=== PATIENT | male | born 1965 | race Caucasian/White ===

== ENCOUNTER → 2018-02-17 | Outpatient (CLI) | payer BC ==
[2018-02-17 13:21] LABS: BASO % 0.3 %; BASO ABS # 0.01 K/uL (0-0.2); EOS % 1.1 %; EOS ABS # 0.04 K/uL (0-0.5); HEMATOCRIT 44.7 % (42-52); HEMOGLOBIN 15.1 g/dL (14.0-18.0); IG# 0.01 K/uL (0.00-0.02); LYMPH ABS # 1.43 K/uL (1.2-3.4); MEAN CELL VOLUME 93.3 fL (80-100); MEAN CORPUSCULAR HEMOGLOBIN 31.5 pg (25-34); MEAN CORPUSCULAR HGB CONC 33.8 g/dl (32-36); MEAN PLATELET VOLUME 11.2 fL (7.4-10.4); MONO % 9.5 %; MONO ABS # 0.35 K/uL (0.11-0.59); NEUT % 49.8 %; NEUT ABS # 1.83 K/uL (1.4-6.5); PLATELET COUNT 227 K/uL (130-400); RED CELL DISTRIBUTION WIDTH CV 13.8 % (11.5-14.5); RED CELL DISTRIBUTION WIDTH SD 46.9 fL (36.4-46.3); WHITE BLOOD COUNT 3.67 K/uL (4.8-10.8)
[2018-02-17 14:02] LABS: ALBUMIN 4.1 gm/dl (3.4-5.0); ALT/SGPT 30 U/L (12-78); AST/SGOT 22 U/L (15-37); BLOOD UREA NITROGEN 16 mg/dl (7-18); CALCIUM 9.2 mg/dl (8.5-10.1); CARBON DIOXIDE 29 mmol/L (21-32); GLUCOSE 101 mg/dl (70-99); POTASSIUM 4.3 mmol/L (3.5-5.1); SODIUM 138 mmol/L (136-145)
[2018-02-17 14:08] LABS: ALKALINE PHOSPHATASE 45 U/L (45-117); CHOLESTEROL 180 mg/dl (0-200); LDL CHOLESTEROL CALCULATED 77 mg/dl; TOTAL PROTEIN 7.7 gm/dl (6.4-8.2)
== END | disposition home or self-care (01) ==
LOC: C.LABMFLN 10:17
PROVIDERS: ATTEND Family Medicine
DX: E78.5 Hyperlipidemia, unspecified (principal); Z12.5 Encounter for screening for malignant neoplasm of prostate; Z87.898 Personal history of other specified conditions

== ENCOUNTER → 2018-02-28 | Outpatient (CLI) | payer BC ==
[2018-02-28 17:51] LABS: BASO % 0.4 %; BASO ABS # 0.02 K/uL (0-0.2); EOS % 1.3 %; EOS ABS # 0.07 K/uL (0-0.5); HEMATOCRIT 42.6 % (42-52); HEMOGLOBIN 14.3 g/dL (14.0-18.0); IG# 0.01 K/uL (0.00-0.02); LYMPH % 43.1 %; LYMPH ABS # 2.39 K/uL (1.2-3.4); MEAN CELL VOLUME 92.8 fL (80-100); MEAN CORPUSCULAR HEMOGLOBIN 31.2 pg (25-34); MEAN CORPUSCULAR HGB CONC 33.6 g/dl (32-36); MEAN PLATELET VOLUME 11.2 fL (7.4-10.4); MONO % 8.6 %; MONO ABS # 0.48 K/uL (0.11-0.59); NEUT % 46.4 %; NEUT ABS # 2.58 K/uL (1.4-6.5); PLATELET COUNT 232 K/uL (130-400); RED CELL DISTRIBUTION WIDTH CV 13.9 % (11.5-14.5); RED CELL DISTRIBUTION WIDTH SD 47.3 fL (36.4-46.3); WHITE BLOOD COUNT 5.55 K/uL (4.8-10.8)
== END | disposition home or self-care (01) ==
LOC: C.LABMFLN 13:00
PROVIDERS: ATTEND Family Medicine
DX: D72.819 Decreased white blood cell count, unspecified (principal)